=== PATIENT | female | born 1985 | race Asian ===

== ENCOUNTER 2018-07-18 06:13 | Inpatient (IN) | payer BC ==
[2018-07-18 06:26] VITALS: BMI 27.2
[2018-07-18] MEDS ORDERED: Bicitra 30 ML UDCUP PO SCH (06:30)
[2018-07-18] MEDS ORDERED: Lactated Ringer's 1,000 ML IV SCH (06:30)
[2018-07-18] MEDS ORDERED: Butorphanol Tartrate 1 MG/ML VIAL SLOW IVP PRN (06:30)
[2018-07-18] MEDS ORDERED: Promethazine HCl 25 MG/ML VIAL IM PRN ×3 (06:30→13:18)
--- NOTE | 2018-07-18 06:30 | PDOC.EVN ---
Event Note - Event Note Event Note: OBGYN [employer] Courtesy admit note Patient of Dr sears 629 Location: L&D HX CS x 2, scheduled for repeat CS Friday (2 days)...here with contractions Exam: 4cm dilation Admit for repeat CS RAFAEL Anesthesia contact Fatou call now
[2018-07-18 07:08] LABS: Hemoglobin 11.8 g/dL (12.0-16.0); Mean Corpuscular HGB CONC 34.1 g/dL (32.0-36.0); Mean Corpuscular Hemoglobin 32.1 pg (27.0-31.0); Mean Corpuscular Volume 94.1 fL (78.0-98.0); Mean Platelet Volume 7.3 fL (7.4-10.4); Platelet Count 189 thou/uL (130-400); RBC Distribution Width 11.7 % (11.5-14.5); Red Blood Cell (RBC) Count 3.67 mill/uL (4.20-5.40); White Blood Cell (WBC) Count 8.1 thou/uL (4.8-10.8)
[2018-07-18 08:07] LABS: HIV (1/2) Antibody/Antigen Non-Reactive (NonReactive); HIV 1/2 INDEX 0.07 S/CO (<1.00); Hep B Surf Ag Non-Reactive S/CO (NonReactive)
[2018-07-18 08:11] LABS: HBSAg Index 0.21 S/CO (0-0.99)
[2018-07-18] MEDS ORDERED: Triamcinolone 40 MG/ML VIAL FS SCH (09:15)
[2018-07-18] MEDS ORDERED: Fentanyl 100 MCG/2 ML VIAL ONE ×2 (09:22→10:25)
[2018-07-18] MEDS ORDERED: MORPHINE 5 MG/10 ML PF VIAL ONE (09:22)
[2018-07-18] MEDS ORDERED: PHENYLEPHRINE-NS 100 MCG/ML 10 ML SYRINGE ONE (09:23)
[2018-07-18] MEDS ORDERED: Oxytocin 10 UNITS/ML VIAL ONE (09:23)
[2018-07-18] MEDS ORDERED: Ondansetron PF 4 MG/2 ML Vial ONE ×2 (09:23→13:49)
[2018-07-18] MEDS ORDERED: Ketorolac Tromethamine 30 MG/ML VIAL ONE ×2 (09:23→13:49)
[2018-07-18] MEDS ORDERED: ePHEDrine/0.9% NaCl/PF SYRINGE 50 mg/10 ml ONE (09:46)
--- NOTE | 2018-07-18 11:39 | PDOC.LDHP ---
Labor and Delivery H&P Chief complaint: contractions Current gestational age (weeks): 38 Due date: 07/27/18 Grav: 3 Para: 2 Current complications: none Abnormal US findings: No Current medications: pre- vitamins Previous surgical history: low tranverse CS Allergies/Adverse Reactions: Allergies Allergy/AdvReac Type Severity Reaction Status Date / Time No Known Allergies Allergy Verified 07/18/18 06:24 - Physical Exam Vital signs reviewed and normal: yes General: NAD, breathing through contractions Heart: RRR Lungs: nonlabored breathing Abdomen: gravid Extremeties: no edema FHT: category 1 - Vaginal Exam cm dilated: 4 - Assessment L&D Assessment: term patient in labor - Plan Plan: to OR for section
[2018-07-18] MEDS ORDERED: Eucerin (Mineral Oil/Petrolatum,White) 30 gm Jar TOP PRN (12:18)
[2018-07-18] MEDS ORDERED: diphenhydrAMINE 50 MG/ML VIAL IVP PRN (12:18)
[2018-07-18] MEDS ORDERED: Ondansetron PF 4 MG/2 ML Vial IVP PRN ×2 (12:18→13:18)
[2018-07-18] MEDS ORDERED: Promethazine HCl 25 MG SUPP PR PRN (12:18)
[2018-07-18] MEDS ORDERED: Naloxone HCl 0.4 mg/ml Vial IVP PRN ×2 (12:18)
[2018-07-18] MEDS ORDERED: Naloxone HCl 0.4 mg/ml Vial IV PRN (12:18)
[2018-07-18] MEDS ORDERED: Ondansetron HCl/PF 4 MG/2 ML Vial IVP PRN (12:19)
[2018-07-18] MEDS ORDERED: HYDROmorphone 2 MG/ML VIAL SLOW IVP PRN (12:19)
[2018-07-18] MEDS ORDERED: Meperidine HCl/PF 25 MG/ML VIAL SLOW IVP PRN (12:19)
[2018-07-18] MEDS ORDERED: L&D-Morphine 4 MG/ML VIAL SLOW IVP PRN (12:19)
[2018-07-18] MEDS ORDERED: Promethazine HCl 25 MG/ML VIAL ONE (12:20)
[2018-07-18] MEDS ORDERED: Communication Order-Pharmacy FS SCH (12:30)
[2018-07-18] MEDS ORDERED: Ketorolac Tromethamine 30 MG/ML VIAL IVP SCH (12:30)
[2018-07-18 12:58] LABS: Syphilis Antibody Nonreactive (Nonreactive); Syphilis Antibody Index 0.05 S/CO (<1.00 Non-Reactive)
[2018-07-18] MEDS ORDERED: diphenhydrAMINE 50 MG/ML VIAL ONE (13:09)
[2018-07-18] MEDS ORDERED: NS / Oxytocin 40 units/1000ml 1,000 ML IV SCH (13:18)
[2018-07-18] MEDS ORDERED: Misoprostol 200 MCG TAB PR PRN (13:18)
[2018-07-18] MEDS ORDERED: Lanolin Ointment 7 GM TUBE TOP PRN (13:18)
[2018-07-18] MEDS ORDERED: Methylergonovine 0.2 MG/ML VIAL IM PRN (13:18)
[2018-07-18] MEDS ORDERED: HYDROcodone/Acetaminophen 5/325 mg Tablet PO PRN (13:18)
[2018-07-18] MEDS ORDERED: diphenhydrAMINE 25 MG CAP PO PRN (13:18)
[2018-07-18] MEDS ORDERED: Simethicone Chewable 80 MG TAB PO PRN (13:18)
[2018-07-18] MEDS ORDERED: Bisacodyl 10 MG SUPP PR PRN (13:18)
[2018-07-18] MEDS ORDERED: ePHEDrine 50 MG/ML VIAL ONE (13:49)
[2018-07-18] MEDS: Ibuprofen 800 MG TAB PO SCH ×2 (15:20→21:49)
[2018-07-18] MEDS: Ketorolac Tromethamine 30 MG/ML VIAL IVP PRN (17:32)
[2018-07-18] MEDS: Docusate Calcium (SURFAK) 240 MG CAP PO SCH (21:50)
[2018-07-19] MEDS: Ketorolac Tromethamine 30 MG/ML VIAL IVP PRN (00:06)
--- NOTE | 2018-07-19 00:18 | PDOC.PP ---
Post Progress Note Post Day #: POD#1 Subjective: Resting, no complaints. PO intake tolerated: no Flatus: no Ambulation: no Vital Signs (12 hours) Temp Pulse Resp BP Pulse Ox 07/18/18 19:41 98.4 F 84 18 98/57 L 07/18/18 16:30 97.6 F 80 16 102/53 L 07/18/18 14:39 80 16 107/53 L 07/18/18 13:40 97.6 F 77 16 120/67 99 Weight Weight 78.925 kg - Physical Examination General: NAD Respiratory: non-labored breathing Abdominal: no distention Skin: CS incision dry & intact Psychiatric: normal affect Result Diagrams: 07/18/18 06:50 Additional Labs: Post Labs Blood Type O POSITIVE 07/18/18 07:37 Hep Bs Antigen Non-Reactive S/CO (NonReactive) 07/18/18 06:50 - Assessment/Plan Doing well. Clears and advance. LIANG hernandez in AM.
[2018-07-19] MEDS: Ibuprofen 800 MG TAB PO SCH ×3 (05:44→22:04)
[2018-07-19 06:09] LABS: Hemoglobin 10.5 g/dL (12.0-16.0); Mean Corpuscular HGB CONC 33.5 g/dL (32.0-36.0); Mean Corpuscular Hemoglobin 31.9 pg (27.0-31.0); Mean Corpuscular Volume 95.4 fL (78.0-98.0); Platelet Count 164 thou/uL (130-400); RBC Distribution Width 11.7 % (11.5-14.5); Red Blood Cell (RBC) Count 3.27 mill/uL (4.20-5.40); White Blood Cell (WBC) Count 13.5 thou/uL (4.8-10.8)
[2018-07-19] MEDS: Docusate Calcium (SURFAK) 240 MG CAP PO SCH ×2 (09:00→22:04)
[2018-07-19] MEDS ORDERED: Varicella virus, LIVE 0.5 ML VIAL SC ONE (09:00)
[2018-07-19] MEDS ORDERED: Measles/Mumps/Rubella 10 MCG/0.5 ML VIAL SC ONE (09:00)
[2018-07-19] MEDS ORDERED: Adacel (T-DAP) 0.5 ML SYRINGE IM ONE (09:00)
[2018-07-20] MEDS: Ibuprofen 800 MG TAB PO SCH ×3 (05:22→21:21)
--- NOTE | 2018-07-20 06:26 | PDOC.EVN ---
Event Note - Event Note Event Note: 07/20/18...0620 POD2 Called at 0600 to assess the postop incision check. She was a repeat CS after spont onset of labor, on friday AM....now POD2. RN stated some serosanguinous DSCH at mid right of incision... I evaluated the incision at bedside.. sutured and DB...no drainage seen now. No erythema, no purulence. Area nontender. I cannot express any drainage. Steristrips in use there locally. Per patient, physicain injected Kenalog into the closure. I suspect this is some of the leakage. No intervention needed at this time. Follow today
[2018-07-20] MEDS: Docusate Calcium (SURFAK) 240 MG CAP PO SCH ×2 (08:17→21:20)
[2018-07-20] MEDS: HYDROcodone/Acetaminophen 5/325 mg Tablet PO PRN ×2 (14:28→19:27)
[2018-07-20] MEDS: Sulfameth/Trimethoprim DS 800-160mg TAB PO SCH (21:21)
[2018-07-21] MEDS: Ibuprofen 800 MG TAB PO SCH (05:39)
[2018-07-21 07:42] VITALS: BP 103/60; TEMP 97.6
[2018-07-21] MEDS: Sulfameth/Trimethoprim DS 800-160mg TAB PO SCH (09:43)
[2018-07-21] MEDS: Docusate Calcium (SURFAK) 240 MG CAP PO SCH (09:43)
--- NOTE | 2018-07-21 12:58 | PDOC.PP ---
Post Progress Note Post Day #: 3 PO intake tolerated: yes Flatus: yes Ambulation: yes Vital Signs (12 hours) Temp Pulse Resp BP Pulse Ox 07/21/18 07:41 97.6 F 71 20 103/60 98 07/21/18 05:35 97.8 F 76 18 98/68 Weight Weight 174 lb - Physical Examination General: NAD Cardiovascular: no m/r/g, RRR Respiratory: clear to auscultation bilaterally, non-labored breathing Abdominal: + bowel sounds, lochia, no distention Extremities: negative homans (B) Skin: CS incision dry & intact, no rash Neurological: no gross focal deficits Psychiatric: A&Ox3, normal affect Result Diagrams: 07/19/18 05:52 Additional Labs: Post Labs Blood Type O POSITIVE 07/18/18 07:37 Hep Bs Antigen Non-Reactive S/CO (NonReactive) 07/18/18 06:50
--- NOTE | 2018-07-21 17:52 | OP ---
DATE OF PROCEDURE: 07/18/2018 TIME OF SERVICE: At 10:11 [place] [facility] savings time. PREOPERATIVE DIAGNOSES: Intrauterine at 38 weeks and 5 days with spontaneous onset of labor. POSTOPERATIVE DIAGNOSES: 1. Intrauterine at 38 weeks and 5 days with spontaneous onset of labor. 2. Suspected uterine fibroids. FINDINGS: Viable male infant, weighing 3359 g or 7 pounds 6 ounces. Apgars of 8 and 9. QUANTITATIVE BLOOD LOSS: 687 mL. COMPLICATIONS: None. PROCEDURES PERFORMED: 1. Repeat low transverse section. 2. Excision of left posterior uterine mass believed to be uterine fibroid (myomectomy). DETAILS OF PROCEDURE: The patient was consented and taken back to the operating room where spinal anesthesia was found to be adequate. She was then prepped and draped in the normal sterile fashion. A timeout was performed by the entire operative team. The incision was then marked with a marking pen tested using sharp pickups. An incision was then made with a scalpel. The incision was carried through the adipose tissue down to the underlying rectus fascia using both sharp dissection as well as cautery. Once the fascia was identified, it was incised in the midline and then the fascial incision was carried through in both lateral directions using sharp as well as cautery dissection techniques. Next, the superior aspect of the rectus fascia was grasped with 2 Kj clamps, which was tented up and the rectus muscles were dissected off using blunt dissection as well as cautery dissection. Similarly, the inferior aspect of the fascial incision was grasped with 2 Kj clamps, tented up and the rectus muscles were dissected off bluntly as well as sharply. Next, the rectus muscles were in the midline and the peritoneum identified. The peritoneum was then carefully grasped with 2 hemostats and entered sharply. The peritoneal incision was extended superiorly and inferiorly and bladder blade was placed in the lower abdomen. At this point, the uterus was identified and the bladder flap was then developed using pickups with teeth as well as Metzenbaum scissors in both lateral directions. The bladder flap was then dissected downwards using the sanitary landfill operator's finger as well as Metzenbaum scissors. The bladder blade was replaced. The lower uterine segment was then identified and entered sharply using a clean scalpel. The uterine incision was then dissected downwards until thin layer of muscle remained and this was entered bluntly using a hemostat to avoid any injury to the baby. The uterine incision was then stretched using two fingers in both lateral directions. An amniotomy was performed artificially using a hemostat and the baby was delivered using fundal pressure in a gentle fashion. Once out, the baby's mouth and nose were bulb suctioned, cord clamped and cut, and the baby was handed to waiting attendants. Next, the uterus was exteriorized, cleared of all clots and debris and the uterine incision was repaired with #1 Monocryl in a running locking fashion. A 2nd suture of the same type was used to obtain complete hemostasis at the uterine incision. The bladder flap was reapproximated using 3-0 Monocryl. Next, patient's left and right adnexa were inspected and appeared to be within normal limits. The posterior cul-de-sac was blotted dry and hemostasis assured. One more look at the uterine incision demonstrated hemostasis. Next, the uterus was replaced back within the abdomen. The peritoneum was reapproximated using 2-0 Monocryl without difficulty. The rectus muscles were then allowed to come back together and 0 chromic was used to aid in reapproximation of the muscle as necessary. The rectus fascia was then reapproximated in a running fashion using 0 Vicryl suture. The adipose tissue was then examined and appeared to be well approximated without any obvious separations. Finally, the skin was reapproximated with 3-0 Monocryl on a Giancarlo needle without difficulty and Dermabond adhesive was applied to the skin. Once the glue was dry, the drapes were removed and the patient was transferred to an ambulatory bed where she was taken to recovery awake and in stable condition. Sponge, lap, and needle counts were correct x3. Following closure of the skin and use of Dermabond, 20 mg of Kenalog were mixed with 20 mL of normal saline and injected underneath the incision site to help prevent keloid formation at the patient has a strong request. We did discuss that this increased the chance of potential seroma or wound breakdown given the extra fluid. However, we did excise the previous keloid scarring of the skin and the patient was hoping for the best cosmetic result possible. Job ID: [id number]
== END 2018-07-21 13:42 | disposition home or self-care (01) | DRG 788 ==
LOC: L&D/OP 06:13 → L&D 06:47 → 3SW 13:57
PROVIDERS: ADMIT Obstetrics & Gynecology; ATTEND Obstetrics & Gynecology
PROC: 10D00Z1 Extraction of Products of Conception, Low, Open Approach (ICD-10-PCS; principal; 2018-07-18)
PROC: 0UB90ZZ Excision of Uterus, Open Approach (ICD-10-PCS; 2018-07-18)
DX: O34.211 Maternal care for low transverse scar from previous cesarean delivery (principal); O34.13 Maternal care for benign tumor of corpus uteri, third trimester; D25.9 Leiomyoma of uterus, unspecified; Z3A.38 38 weeks gestation of pregnancy; Z37.0 Single live birth
CPT/HCPCS: 36415; 51702; 85027; 86780; 86850; 86900; 86901; 87340; 87389; 88305; 99285; J0595; J1200; J1885; J2270; J2405; J2550; J2590; J3010; J3301; J3490

== ENCOUNTER 2018-08-20 10:28 | Outpatient (CLI) | payer BC ==
[2018-08-20] MEDS ORDERED: Sodium Chloride 0.9% 15 ML NEB ONE (17:22)
[2018-08-20] MEDS ORDERED: Lidocaine 2% 11 ML SYR ONE (17:22)
--- NOTE | 2018-08-20 22:10 | HP ---
HISTORY OF PRESENT ILLNESS: Ms. Linda Diaz is a very pleasant 32-year-old accompanied by her , who presents to the Wound Center for evaluation of 2 nonhealing surgical wounds of the lower abdomen subsequent to repeat low-transverse section on 07/18/2018. The patient underwent the preceding procedure by Dr. Jacoby Lainez. The patient states that she had undergone 2 previous C-sections and received 3 injections of Kenalog subsequent to each for keloid formation. The patient states that she received Kenalog intraoperatively at the time of her last . The patient states that the presence of a nonhealing surgical wound was noted in the hospital and treated with Steri-Strips and surgical glue. She states that upon discharge from the hospital, she received the application on a weekly basis of surgical glue on 2 occasions. She states that most recently the sutures were used to approximate the wound edges of her surgical incision. She states that 1-2 weeks later, every other suture was discontinued. She states that she was seen by Dr. Lainez yesterday, at which time the remaining sutures were discontinued and the patient was referred to the Wound Center for further evaluation and treatment. The patient states that at the time of surgery, her wound edges were approximated with sutures and surgical glue. The patient states that she has been treated with 3 courses of Bactrim. Presently, she is taking Augmentin. PAST MEDICAL HISTORY: Negative for any chronic medical conditions. PAST SURGICAL HISTORY: 1. Low-transverse x3. Myomectomy was performed at the time of the patient's last . 2. Surgery for intussusception at 4 months of age. MEDICATIONS: 1. Augmentin. 2. Ibuprofen p.r.n. ALLERGIES: NO KNOWN DIAGNOSED ALLERGIES. SOCIAL HISTORY: Social history is negative for tobacco or EtOH use. FAMILY HISTORY: Family history significant for diabetes mellitus. The patient states that she has multiple relatives on the maternal side of her family who were diagnosed with diabetes mellitus. PHYSICAL EXAMINATION: VITAL SIGNS: Temperature 98.6, pulse 104, respirations 17, blood pressure 90/66. GENERAL: A 32-year-old female sitting on chair in examination room, in no acute distress. HEENT: Normocephalic, atraumatic. NECK: No nuchal rigidity. CHEST: Clear to auscultation. CV: Regular rate and rhythm. ABDOMEN: Soft. Two nonhealing surgical wounds of the lower abdomen are present which measure approximately 0.5 x 1.0 cm and 0.2 x 2.0 cm. The depth of each wound is 1.4 and 1.2 cm respectively. A tunnel at the 3 o'clock position is present, which is 4.3 cm in length. A tunnel is present at the 9 o'clock position, which is 9.8 cm in length. Granulation tissue is present within the margins of each wound. Nonviable tissue present within the margins of each wound was debrided with an excisional full-thickness debridement. No purulent drainage is associated with either wound. Both wounds connect subcutaneously. No erythema of the skin surrounding either wound is present. No maceration of the skin of the periwound of either wound is noted. EXTREMITIES: No clubbing or cyanosis. NEURO: Grossly nonfocal. ASSESSMENT AND PLAN: Nonhealing surgical wounds of lower abdomen as described above. Dressing changes of Hydrofera Blue followed by ABD secured with tape will be initiated today. These dressing changes are to be performed on a daily basis after cleansing and irrigation. The patient is to continue Augmentin as previously prescribed. I will see Ms. Diaz again in 1 week. The patient and her understand and are in agreement with the preceding treatment plan. Job ID: [id number]
== END 2018-08-20 10:29 | disposition home or self-care (01) ==
LOC: WCC 10:28
PROVIDERS: ATTEND Family Medicine
DX: T81.89XD Other complications of procedures, not elsewhere classified, subsequent encounter (principal)
CPT/HCPCS: 11042; 99203; A4218; G0463

== ENCOUNTER 2018-08-26 09:05 | Outpatient (CLI) | payer BC ==
--- NOTE | 2018-08-26 10:09 | PRG ---
DATE OF SERVICE: 08/26/2018 HISTORY: Ms. Linda Diaz is a very pleasant 32-year-old who presents to the Wound Center for evaluation of 2 nonhealing surgical wounds of the lower abdomen subsequent to repeat low-transverse section on 07/18/2018. The patient underwent the preceding procedure by Dr. Jacoby Lainez. The patient stated that she had undergone 2 previous C-sections and received 3 injections of Kenalog subsequent to each for keloid formation. The patient stated that she received Kenalog intraoperatively at the time of her last . The patient stated that the presence of a nonhealing surgical wound was noted in the hospital and treated with Steri-Strips and surgical glue. She stated that upon discharge from the hospital, she received the application on a weekly basis of surgical glue on 2 occasions. She stated that most recently sutures were used to approximate the wound edges of her surgical incision. She stated that 1-2 weeks later, every other suture was discontinued. She stated that she was seen by Dr. Lainez 1 day prior to being seen in the Wound Center, at which time the remaining sutures were discontinued and the patient referred to the Wound Center for further evaluation and treatment. The patient stated that at the time of surgery, her wound edges were approximated with sutures and surgical glue. The patient had been treated with 3 courses of Bactrim and one course of Augmentin prior to being seen in the Wound Center. PHYSICAL EXAMINATION: VITAL SIGNS: Temperature 97.5, pulse 83, respirations 16, blood pressure 107/ 63. ABDOMEN: Soft. Two nonhealing surgical wounds of the lower abdomen are present , which measure approximately 0.4 x 1.3 cm and 0.5 x 1.5 cm. A tunnel at the 3 o'clock position is present, which measures approximately 4 cm in length. The length of this tunnel at the time of the patient's last visit was 4.3 cm. A tunnel is present at the 9 o'clock position, which is 5.5 cm in length. The length of this tunnel at the time of the patient's last visit was 9.8 cm in length. Granulation tissue was present within the margins of each wound. Nonviable tissue present within the margins of each wound was debrided with an excisional full-thickness debridement. Moderate serosanguinous drainage is associated with each wound. No purulent drainage is associated with either wound. Both tunnels still connect subcutaneously. No erythema of the skin surrounding either wound is present. No maceration of the skin of the periwound of either wound is noted. ASSESSMENT AND PLAN: Nonhealing surgical wounds of lower abdomen as described above. Dressing changes of Hydrofera Blue, followed by an ABD secured with tape will be continued on a daily basis after cleansing and irrigation. I will see Ms. Diaz again in 1 week. Job ID: [id number] [facility]
[2018-08-26] MEDS ORDERED: Sodium Chloride 0.9% 15 ML NEB ONE (15:06)
== END 2018-08-26 09:06 | disposition home or self-care (01) ==
LOC: WCC 09:05
PROVIDERS: ATTEND Family Medicine
DX: T81.89XD Other complications of procedures, not elsewhere classified, subsequent encounter (principal)
CPT/HCPCS: 11042; A4218

== ENCOUNTER 2018-08-31 09:00 | Outpatient (CLI) | payer BC ==
--- NOTE | 2018-08-31 10:04 | PRG ---
DATE OF SERVICE: 08/31/2018 HISTORY: Ms. Linda Diaz is a very pleasant 32-year-old, who presents to the Wound Center for evaluation of 2 nonhealing surgical wounds of the lower abdomen subsequent to repeat low-transverse section on 07/18/2018. The patient underwent the preceding procedure by Dr. Jacoby Lainez. The patient stated that she had undergone 2 previous C-sections and received 3 injections of Kenalog subsequent to the second for keloid formation. The patient stated that she received Kenalog intraoperatively at the time of her last . The patient stated that the presence of a nonhealing surgical wound was noted in the hospital and treated with Steri-Strips and surgical glue. She stated that upon discharge from the hospital, she received the application on a weekly basis of surgical glue on 2 occasions. She stated that most recently sutures were used to approximate the wound edges of her surgical incision. She stated that 1 to 2 weeks later, every other suture was discontinued. She stated that she was seen by Dr. Lainez one day prior to being seen in the Wound Center, at which time, the remaining sutures were discontinued and the patient referred to the Wound Center for further evaluation and treatment. The patient stated that at the time of surgery, her wound edges were approximated with sutures and surgical glue. The patient had been treated with 3 courses of Bactrim and one course of Augmentin prior to being seen in the Wound Center. PHYSICAL EXAMINATION: VITAL SIGNS: Temperature 97.9, pulse 80, respirations 17, and blood pressure 106/59. ABDOMEN: Soft. Two nonhealing surgical wounds of the lower abdomen are present, which measure approximately 0.9 x 0.4 cm and 0.2 x 1.4 cm. A tunnel at the 3 o'clock position is present, which measures approximately 4.3 cm in length. Granulation tissue is present within the margins of each wound. Nonviable tissue present within the margins of each wound was debrided with an excisional full-thickness debridement. No purulent drainage is associated with either wounds. Both wounds are no longer connected subcutaneously as at the time of the patient's last visit. No erythema of the skin surrounding either wound is present. No maceration of the skin of the periwound of either wound is noted. ASSESSMENT AND PLAN: Nonhealing surgical wounds of lower abdomen as described above. Dressing changes of Hydrofera Blue, followed by an ABD secured with tape will be continued on a daily basis after cleansing and irrigation. I will see Ms. Diaz again in 1 to 2 weeks. Job ID: [id number]
[2018-08-31] MEDS ORDERED: Sodium Chloride 0.9% 15 ML NEB ONE (19:10)
== END 2018-08-31 09:01 | disposition home or self-care (01) ==
LOC: WCC 09:00
PROVIDERS: ATTEND Family Medicine
DX: T81.89XD Other complications of procedures, not elsewhere classified, subsequent encounter (principal)
CPT/HCPCS: 11042; A4218

== ENCOUNTER 2018-09-07 09:02 | Outpatient (CLI) | payer BC ==
--- NOTE | 2018-09-07 10:29 | PRG ---
DATE OF SERVICE: 09/07/2018 HISTORY: Ms. Linda Diaz is a very pleasant 32-year-old, who presents to the Wound Center for evaluation of 2 nonhealing surgical wounds of the lower abdomen subsequent to repeat low-transverse section on 07/18/2018. The patient underwent the preceding procedure by Dr. Jacoby Lainez. The patient stated that she had undergone 2 previous C-sections and received 3 injections of Kenalog subsequent to the second for keloid formation. The patient stated that she received Kenalog intraoperatively at the time of her last . The patient stated that the presence of a nonhealing surgical wound was noted in the hospital and treated with Steri-Strips and surgical glue. She stated that upon discharge from the hospital, she received the application on a weekly basis of surgical glue on 2 occasions. She stated that most recently sutures were used to approximate the wound edges of her surgical incision. She stated that 1 to 2 weeks later every other suture was discontinued. She stated that she was seen by Dr. Lainez 1 prior to being seen in the Wound Center at which time the remaining sutures were discontinued, and the patient referred to the Wound Center for further evaluation and treatment. The patient stated that at the time of surgery, her wound edges were approximated with sutures and surgical glue. The patient had been treated with 3 courses of Bactrim and 1 course of Augmentin prior to being seen in the Wound Center. PHYSICAL EXAMINATION: VITAL SIGNS: Temperature 98.0, pulse 103, respirations 16, blood 107/60. ABDOMEN: Soft. Two nonhealing surgical wounds of the lower abdomen are present, which measures approximately 0.3 x 0.8 cm and 0.2 x 1.0 cm. A tunnel at the 3 o'clock position is present, which measures approximately 3.7 cm in length. At the time of the patient's last visit, this tunnel measured approximately 4.3 cm in length. Granulation tissue is present within the margins of each wound. Nonviable tissue present within the margins of each wound was debrided with an excisional full-thickness debridement. No purulent drainage is associated with either wound. No erythema of the skin surrounding either wound is present. No maceration of the skin of the periwound of either wound is noted. ASSESSMENT AND PLAN: Nonhealing surgical wounds of lower abdomen as described above. Dressing changes of Hydrofera Blue, followed by an ABD secured with tape will be continued on a daily basis after cleansing and irrigation. I will see Ms. Diaz again in 1 to 2 weeks. Job ID: [id number]
[2018-09-07] MEDS ORDERED: Sodium Chloride 0.9% 15 ML NEB ONE (18:00)
== END 2018-09-07 09:03 | disposition home or self-care (01) ==
LOC: WCC 09:02
PROVIDERS: ATTEND Family Medicine
DX: T81.89XD Other complications of procedures, not elsewhere classified, subsequent encounter (principal)
CPT/HCPCS: 11042; A4218

== ENCOUNTER 2018-09-17 10:00 | Outpatient (CLI) | payer BC ==
[2018-09-17] MEDS ORDERED: Sodium Chloride 0.9% 15 ML NEB ONE (15:00)
--- NOTE | 2018-09-17 17:42 | PRG ---
DATE OF SERVICE: 09/17/2018 HISTORY: Ms. Linda Diaz is a very pleasant 32-year-old, who presents to the Wound Center for evaluation of 2 nonhealing surgical wounds of the lower abdomen subsequent to repeat low-transverse section on 07/18/2018. The patient underwent the preceding procedure by Dr. Jacoby Lainez. The patient stated that she had undergone 2 previous C-sections and received 3 injections of Kenalog subsequent to the second for keloid formation. The patient stated that she received Kenalog intraoperatively at the time of her last . The patient stated that the presence of a nonhealing surgical wound was noted in the hospital and treated with Steri-Strips and surgical glue. She stated that upon discharge from the hospital, she received the application on a weekly basis of surgical glue on 2 occasions. She stated that most recently sutures were used to approximate the wound edges of her surgical incision. She stated that 1 to 2 weeks later every other suture was discontinued. She stated that she was seen by Dr. Lainez one day prior to being seen in the Wound Center, at which time the remaining sutures were discontinued and the patient was referred to the Wound Center for further evaluation and treatment. The patient stated that at the time of surgery, her wound edges were approximated with sutures and surgical glue. The patient had been treated with 3 courses of Bactrim and one course of Augmentin prior to being seen in the Wound Center. PHYSICAL EXAMINATION: VITAL SIGNS: Temperature 98.1, pulse 97, respirations 16, and blood pressure 115/57. ABDOMEN: Soft. Only one nonhealing surgical wound of the lower abdomen remains, which measures approximately 0.4 x 0.6 cm. A tunnel at the 3 o'clock position is present, which is approximately 2.6 cm in length. At the time of the patient's last visit, this tunnel measured approximately 3.7 cm in length. Granulation tissue is present within the wound margins. Nonviable tissue present within the wound margins was debrided with an excisional full-thickness debridement. No purulent drainage is associated with the wound. No erythema of the skin surrounding the wound is present. No maceration of the skin of the periwound is noted. ASSESSMENT AND PLAN: Nonhealing surgical wounds of lower abdomen. As stated above, only one nonhealing surgical wound of the lower abdomen remains. Dressing changes of Hydrofera Blue followed by an ABD secured with tape will be continued on a daily basis after cleansing and irrigation. I will see Ms. Diaz again in 2 weeks if her wound is still present at this time. The patient understands and is in agreement with the preceding treatment plan. Job ID: [id number]
== END 2018-09-17 10:01 | disposition home or self-care (01) ==
LOC: WCC 10:00
PROVIDERS: ATTEND Family Medicine
DX: T81.89XD Other complications of procedures, not elsewhere classified, subsequent encounter (principal)
CPT/HCPCS: 11042; A4218